=== PATIENT | female | born 1985 | race Caucasian/White ===

== ENCOUNTER 2018-02-12 18:01 | Observation (INO) | payer OTHER ==
[~2018-02-12] VITALS: Ht 163 cm; Wt 90.3 kg
[2018-02-13 11:28] VITALS: BP 116/76
[2018-02-13] MEDS ORDERED: METF-960 PO (11:31)
[2018-02-13] MEDS ORDERED: PREN1TAB80 PO (11:33)
[2018-02-13 15:00] LABS: HEMOGLOBIN A1C 5.1 % (4.5-6.2)
== END 2018-02-13 14:25 | disposition home or self-care (01) ==
LOC: 4S 02-13 11:00
PROVIDERS: ADMIT Obstetrics & Gynecology; ATTEND Obstetrics & Gynecology
DX: O24.419 Gestational diabetes mellitus in pregnancy, unspecified control (principal); Z3A.38 38 weeks gestation of pregnancy
CPT/HCPCS: 36415; 59025; 82947; 83036; G0378

== ENCOUNTER 2018-02-15 10:08 | Observation (INO) | payer OTHER ==
[~2018-02-15] VITALS: Ht 163 cm; Wt 92.5 kg
[~2018-02-15 10:08] MED LIST: METF-960 PO; PREN1TAB80 PO
[2018-02-15 10:45] VITALS: BP 118/77
[2018-02-15 11:44] LABS: HEMOGLOBIN A1C 5.9 % (4.5-6.2)
[2018-02-15 16:29] LABS: GLUCOMETER DEV NAME(LOC) 4S 8; GLUCOSE,POINT OF CARE 102 MG/DL (70-110)
== END 2018-02-15 15:30 | disposition home or self-care (01) ==
LOC: 4S 10:08
PROVIDERS: ADMIT Obstetrics & Gynecology; ATTEND Obstetrics & Gynecology
DX: O62.9 Abnormality of forces of labor, unspecified (principal); O24.419 Gestational diabetes mellitus in pregnancy, unspecified control; Z3A.37 37 weeks gestation of pregnancy
CPT/HCPCS: 36415; 59025; 82947; 82962; 83036; G0378

== ENCOUNTER 2018-02-28 10:45 | Inpatient (IN) | payer OTHER ==
[~2018-02-28] VITALS: Ht 162.6 cm; Wt 90.3 kg
[~2018-02-28 10:45] MED LIST changes: +CITRIC ACID/SODIUM CITRATE 30 ML SOLUTION UDCUP PO ONE; +METOCLOPRAMIDE HCL 5 MG/ML 2 ML VIAL IVP ONE; +RINGERS SOLUTION,LACTATED 1,000 ML IV ONE
[2018-02-28 11:49] LABS: EOSINOPHILS % (AUTO) 0.5 % (1.0-6.0); HEMATOCRIT 33.2 % (36-46); HEMOGLOBIN 11.7 g/dL (12.0-16.0); LYMPHOCYTES # (AUTO) 1.9 K/uL (1.0-4.8); LYMPHOCYTES % (AUTO) 24.3 % (22.0-44.0); MEAN CORPUSCULAR HEMOGLOBIN 29.1 pg (26.0-34.0); MEAN CORPUSCULAR HGB CONC 35.2 G/dL (31.0-37.0); MEAN CORPUSCULAR VOLUME 83 fL (80-100); MONOCYTES # (AUTO) 0.4 K/uL (0.1-1.0); MONOCYTES % (AUTO) 5.6 % (2.0-9.0); NEUTROPHILS # (AUTO) 5.4 K/uL (1.8-7.7); NEUTROPHILS % (AUTO) 68.6 % (40.0-70.0); PLATELET COUNT (AUTO) 218 K/uL (150-450); RED BLOOD CELL COUNT(AUTO) 4.01 MIL/uL (4.00-5.20); RED CELL DISTRIBUTION WIDTH 14.3 % (11.5-14.5)
[2018-02-28] MEDS ORDERED: KETOROLAC TROMETHAMINE 60 MG/2 ML VIAL IM ONE (12:00)
[2018-02-28] MEDS ORDERED: EPHEDrine SULFATE 50 MG/ML VIAL IM ONE (12:00)
[2018-02-28] MEDS ORDERED: OXYTOCIN 10 UNITS/ML VIAL IM ONE (12:00)
[2018-02-28] MEDS ORDERED: DEXAMETHASONE SOD PHOS 4 MG/ML VIAL IVP ONE (12:00)
[2018-02-28] MEDS ORDERED: ONDANSETRON HCL 4 MG/2 ML VIAL IVP ONE (12:00)
[2018-02-28] MEDS ORDERED: MORPHINE SULFATE/PF 1 MG/ML 10 ML AMP ONE (12:15)
[2018-02-28] MEDS ORDERED: MIDAZOLAM HCL 2 MG/2 ML VIAL ONE (12:15)
[2018-02-28] MEDS ORDERED: FentaNYL CITRATE-PF 100 MCG/2 ML VIAL ONE (12:15)
[2018-02-28] MEDS ORDERED: BUPIVACAINE HCL/DEX-WATER/PF 0.75% 2 ML AMP ONE (12:16)
[2018-02-28] MEDS ORDERED: GUM MASTIC/STORAX/MSAL/ALCOHOL LIQUID 0.67 ML VIAL TP ONE (12:25)
[2018-02-28] MEDS ORDERED: HYDROmorphone 2 MG/ML SYRINGE IVP PRN (13:00)
[2018-02-28] MEDS ORDERED: ONDANSETRON HCL 4 MG/2 ML VIAL IVP PRN (13:00)
[2018-02-28] MEDS ORDERED: MEPERIDINE-PF 25 MG/ML VIAL IVP PRN (13:00)
[2018-02-28] MEDS ORDERED: NALOXONE HCL 0.4 MG/ML VIAL IVP PRN (13:00)
[2018-02-28] MEDS ORDERED: FentaNYL CITRATE-PF 100 MCG/2 ML VIAL IVP PRN ×2 (13:00)
[2018-02-28] MEDS ORDERED: DiphenhydrAMINE HCL 50 MG/ML VIAL IVP PRN (13:00)
[2018-02-28] MEDS ORDERED: OxyCODONE HCL/ACETAMINOPHEN 5-325 MG TABLET PO PRN ×3 (13:00→14:30)
[2018-02-28] MEDS ORDERED: OXYTOCIN 30 UNITS/LACT RINGERS 500 ML IV ONE (14:26)
[2018-02-28] MEDS ORDERED: LANOLIN 7 GM OINTMENT TP PRN (14:30)
[2018-02-28] MEDS ORDERED: ONDANSETRON HCL 4 MG/2 ML VIAL ONE (14:35)
[2018-02-28] MEDS: RINGERS SOLUTION,LACTATED 1,000 ML IV SCH ×2 (16:33→23:48)
[2018-02-28] MEDS: KETOROLAC TROMETHAMINE 30 MG/ML VIAL IVP SCH ×2 (18:10→23:48)
[2018-02-28] MEDS ORDERED: OXYGEN THERAPY IH SCH ×2 (20:00)
[2018-02-28] MEDS: MAGNESIUM HYDROXIDE SUSPENSION 30 ML UDCUP PO SCH (21:00)
[2018-03-01 05:46] LABS: BASOPHILS % (AUTO) 0.1 % (0.0-2.0); EOSINOPHILS % (AUTO) 0 % (1.0-6.0); HEMATOCRIT 22.2 % (36-46); HEMOGLOBIN 7.8 g/dL (12.0-16.0); LYMPHOCYTES # (AUTO) 1.9 K/uL (1.0-4.8); LYMPHOCYTES % (AUTO) 16.6 % (22.0-44.0); MEAN CORPUSCULAR HEMOGLOBIN 29.7 pg (26.0-34.0); MEAN CORPUSCULAR HGB CONC 35.2 G/dL (31.0-37.0); MEAN CORPUSCULAR VOLUME 84 fL (80-100); MONOCYTES % (AUTO) 8.1 % (2.0-9.0); NEUTROPHILS # (AUTO) 8.8 K/uL (1.8-7.7); NEUTROPHILS % (AUTO) 75.2 % (40.0-70.0); PLATELET COUNT (AUTO)-OB 159 K/uL (150-450); RED BLOOD CELL COUNT(AUTO) 2.63 MIL/uL (4.00-5.20); RED CELL DISTRIBUTION WIDTH 14.5 % (11.5-14.5)
[2018-03-01] MEDS: KETOROLAC TROMETHAMINE 30 MG/ML VIAL IVP SCH (05:59)
[2018-03-01] MEDS: MAGNESIUM HYDROXIDE SUSPENSION 30 ML UDCUP PO SCH ×2 (09:54→20:58)
[2018-03-01] MEDS ORDERED: IBUPROFEN 800 MG TABLET PO PRN (14:30)
[2018-03-02] MEDS ORDERED: IBUP-2070 PO (10:45)
[2018-03-02] MEDS ORDERED: DSS100 PO (10:46)
[2018-03-02] MEDS ORDERED: PERCT PO (10:49)
== END 2018-03-02 13:20 | disposition home or self-care (01) | DRG 788 ==
LOC: OBSVTOIN 10:45 → 4S 10:45
PROVIDERS: ADMIT Obstetrics & Gynecology; ATTEND Obstetrics & Gynecology
PROC: 10D00Z1 Extraction of Products of Conception, Low, Open Approach (ICD-10-PCS; principal; 2018-02-28)
DX: O69.81X0 Labor and delivery complicated by cord around neck, without compression, not applicable or unspecified (principal); O36.63X0 Maternal care for excessive fetal growth, third trimester, not applicable or unspecified; Z3A.39 39 weeks gestation of pregnancy; Z37.0 Single live birth
CPT/HCPCS: 86850; 86900; 86901; 87081; J0690; J1100; J1885; J2250; J2405; J2590; J2765; J3010; J3490; J7120